=== PATIENT | female | born 1960 | race African-American/Black ===

== ENCOUNTER 2017-11-04 09:12 | Day surgery (SDC) | payer OTHER ==
[~2017-11-04] VITALS: Ht 160 cm; Wt 88.0 kg
[~2017-11-04 09:12] MED LIST: DIVIGEL1 GM TP; HYDROCHLOROTHIA25 MG PO; VIVELLE-DOT0.0375 MG TD
[2017-11-04 09:37] VITALS: BP 119/64
[2017-11-04 19:15] VITALS: BP 130/80
[2017-11-04 20:18] VITALS: BP 118/66
[2017-11-04 20:49] VITALS: BP 141/67
== END 2017-11-04 20:50 | disposition home or self-care (01) ==
LOC: SDC 09:12
DX: M76.71 Peroneal tendinitis, right leg (principal); M21.6X1 Other acquired deformities of right foot; M66.371 Spontaneous rupture of flexor tendons, right ankle and foot; G58.9 Mononeuropathy, unspecified; G60.9 Hereditary and idiopathic neuropathy, unspecified; I10 Essential (primary) hypertension; K21.9 Gastro-esophageal reflux disease without esophagitis; Z87.891 Personal history of nicotine dependence
CPT/HCPCS: 88305; J0330; J1100; J1170; J1885; J2250; J2405; J3010; S0020